=== PATIENT | female | born 1970 | race Caucasian/White ===

== ENCOUNTER 2016-10-06 14:12 | Emergency (ER) | payer OTHER ==
[~2016-10-06] VITALS: Ht 165.1 cm; Wt 81.6 kg
[~2016-10-06 14:12] MED LIST: AMOXICILLIN500 M3 PO; PERCOCET 5-3251 EACH PO
[2016-10-06 14:14] VITALS: BP 185/100
--- NOTE | 2016-10-06 14:24 | ED THROAT/DENTAL COMPLAINT ---
History of Present Illness General Chief Complaint: Sore Throat, Dental Pain Stated Complaint: DENTAL PAIN Source: patient Exam Limitations: no limitations Vital Signs & Intake/Output Vital Signs & Intake/Output Vital Signs Date Time Temp Pulse Resp B/P B/P Pulse O2 O2 Flow FiO2 Mean Ox Delivery Rate 10/06 1414 99.6 82 18 185/100 97 Room Air Allergies Coded Allergies: Sulfa (Sulfonamide Antibiotics) (Intermediate, RASH 10/06/16) Reconcile Medications Amoxicillin 875 MG TABLET 1 TAB PO BID INFECTION Ibuprofen 800 MG TABLET 1 TAB PO TID PRN PAIN Oxycodone HCl/Acetaminophen (Percocet 5-325 MG Tablet) 5 MG-325 MG TABLET 1 TAB PO Q4-6 PRN BREAKTHROUGH PAIN Triage Note: PT TO TRIAGE WITH C/O LEFT SIDED TOOTHACHE 03/29 x5DAYS. PT HYPERTENSIVE IN TRIAGE. NO OTHER COMPLAINTS. Triage Nurses Notes Reviewed? yes Onset: Abrupt Duration: day(s): (5) Timing: recent history Severity: mild, severe Modifying Factors: Worsens With: other (DRINKING COLD LIQUIDS). : No Patient currently breastfeeds: No HPI: This is a 45-year-old female with history of previous dental issues presents to the ER with chief complaint of one week's worth of left upper and lower jaw pain. Pain is worse when taking a deep breath in her drink cold liquids. She states that she last had a dental abscess on the right side in May and was given a course of antibiotics. She has not followed up with dentist secondary to insurance issues. Denies any fever or chills. Recent cracked tooth and lost On the same side. No difficulty opening mouth or swallowing. No headache or blurred vision. No ataxic gait. Past History Travel History Traveled to [place] past 21 day No Medical History Any Pertinent Medical History? see below for history Neurological: NONE EENT: NONE Cardiovascular: NONE Respiratory: NONE Gastrointestinal: NONE Hepatic: NONE Renal: NONE Musculoskeletal: NONE Psychiatric: NONE Endocrine: NONE Blood Disorders: NONE Cancer(s): NONE NEUROPSYCHIATRIST/Reproductive: NONE Surgical History Surgical History: none Psychosocial History What is your primary language Brazilian Tobacco Use: Current Daily Use Daily Tobacco Use Amount/Type: => 5 Cigarettes daily Illicit Drug Use: denies illicit drug use Family History Hx Contributory? No Review of Systems Review of Systems Constitutional: Denies: chills, fever. EENTM: Reports: mouth pain. Respiratory: Denies: cough, short of breath. Cardiovascular: Denies: chest pain. GI: Denies: abdominal pain. Genitourinary: Denies: discharge, dysuria. Musculoskeletal: Reports: no symptoms. Skin: Reports: no symptoms. Neurological/Psychological: Reports: no symptoms. Hematologic/Endocrine: Denies: bruising, bleeding, polyuria, polydipsia. Immunologic/Allergic: Denies: splenectomy. All Other Systems: Reviewed and Negative Physical Exam Physical Exam General Appearance: well developed/nourished, awake, anxious Head: atraumatic, normal appearance Eyes: Bilateral: normal appearance, PERRL, EOMI. Ears: Bilateral: canal normal. Nose: normal inspection Mouth/Throat: torus palatinus, multiple carries, 2 cracked teeth Neck: normal inspection, supple Neurologic/Psych: no motor/sensory deficits, awake, alert, oriented x 3 Skin: intact, warm/dry Core Measures ACS in differential dx? No Severe Sepsis Present: No Septic Shock Present: No Progress Differential Diagnosis: carious tooth, kristen-tonsillar abscess, tooth fracture Plan of Care: ABX, PAIN CONTROL, F/U DENTAL. Departure Departure Time of Disposition: 1448 Disposition: HOME OR SELF CARE Condition: Stable Clinical Impression Primary Impression: Odontalgia Referrals: PATIENT HAS NO PRIMARY CARE DR (PCP/Family) Additional Instructions: Take the amoxicillin as directed. Take the ibuprofen and percocet as needed. Please follow up with your dentist or with the list of dental clinics. Return as needed. Departure Forms: Customer Survey General Discharge Information Prescriptions: Current Visit Scripts Ibuprofen 1 TAB PO TID PRN PAIN #30 TAB Amoxicillin 1 TAB PO BID #20 TAB Oxycodone HCl/Acetaminophen (Percocet 5-325 MG Tablet) 1 TAB PO Q4-6 PRN BREAKTHROUGH PAIN #10 TAB
[2016-10-06] MEDS ORDERED: IBUPROFEN800 M1 PO (14:51)
[2016-10-06] MEDS ORDERED: PERCOCET 5-3251 EACH PO (14:51)
[2016-10-06] MEDS ORDERED: AMOXICILLIN875 M1 PO (14:51)
== END 2016-10-06 14:59 ==
LOC: ERH 14:12
DX: K08.89 Other specified disorders of teeth and supporting structures (principal)